=== PATIENT | male | born 1955 | race Caucasian/White ===

== ENCOUNTER 2018-09-02 14:11 | Observation (INO) | payer OTHER ==
[2018-09-02] MEDS ORDERED: NS 1,000 ML IV ONE (14:39)
[2018-09-02] MEDS ORDERED: IOHEXOL 350mgI/ML (OMNIPAQUE) 150 ML BTL IV ONE (14:48)
--- NOTE | 2018-09-02 14:51 | EDPHY ---
General - History Smoking Status: Never smoked Time Seen by Provider: 09/02/18 14:27 Narrative: CLINICAL IMPRESSION: Right cheek paresthesias ASSESSMENT/PLAN: 63-year-old male presents to the emergency department with 1 hr of right facial paresthesias. Patient reports having had similar symptoms late last year, sought medical attention 2 weeks later, had an abnormal MRI and was told he had had a TIA. Patient came to the ED today because he wanted a stroke workup. CT head and CTA head and neck read by Radiology with no acute abnormality identified. Patient was seen and examined by Dr. Aguero as well. Stroke Alert not called. EKG read and interpreted by Dr. Aguero. Labs reassuring, normal troponin, no electrolyte imbalance, renal insufficiency, leukocytosis. Will attempt to obtain prior MRI records from [facility]. Patient will be admitted for TIA workup. Aspirin initiated in the emergency department following normal CT scans. Recommendation for admission reviewed with the patient by Dr. Aguero and myself and he agrees to this. Patient is stable for admission. Discussed with hospitalist who accepts admission. DIFFERENTIAL DX: Differential includes but not limited to TIA, acute CVA, facial nerve palsy, trigeminal neuralgia, medication side effect, electrolyte imbalance, atypical migraine ED PROCEDURES: See lab and/or imaging results below ED COURSE: 2:45 p.m.: Case discussed with Dr. Aguero who also seen examine the patient. Stroke Alert not called. However we are obtaining CT and CTA. Probable admission for TIA workup. 2:50 p.m.: Patient seen by Dr. Aguero. Explained that we will likely admit for TIA workup. Patient in agreement. Patient did not take his aspirin yet today and if CT scans are normal we will give aspirin. 3:45 p.m.: CT scan read by Dr. Shane, no acute intracranial hemorrhage or bleed. CTA results pending. No significant lab abnormality identified. EKG reviewed by Dr. Aguero 4:00 p.m.: Dr. Shane read CT a negative, no carotid or vertebral narrowing or thrombus. 4:08 p.m.: Results of CT scans and lab work discussed with the patient. Explained that we recommend admission given his symptoms and possible TIA as well as reported abnormal MRI in the past. Patient reports he had MRI at [facility]. Will attempt to get that report. Hospitalist marylou. Discussed with Angelo who accepts admission CHIEF COMPLAINT: Right cheek numbness HPI: 63-year-old male with a history of hyperlipidemia and mental health illness presents to the emergency department with 1 hr of atraumatic, subjective right cheek numbness. Patient reports a sensation as though "Dental Novocain is wearing off" and reports he is having trouble feeling the right side of his upper teeth, right cheek extending to the right eyebrow. He reports an hour ago when looking in the mirror his right upper was drooping. That seems to have resolved. Patient reports he had similar symptoms to this in February 2018, did not seek treatment immediately, saw his primary care several weeks later, reportedly had an MRI and was told he had had a TIA and that he should have sought medical attention earlier. Patient is here stating "I want a stroke workup". He reports no new medications, facial trauma, recent dental injury although he did have left-sided dental work several days ago. No reported acute vision or hearing change. He is a nonsmoker, does not drink alcohol, denies headache, dizziness, vertigo, nausea and vomiting. No cardiac history. Patient reports he had a stress test as part of the workup for his symptoms in February, reportedly the test was discontinued early because of "some kind of abnormality in the heart" and he reports he then had a 3D heart scan which was normal. He did not go to the medical laboratory scientist. His mother of a stroke in her 80s. He has never been told he has peripheral artery disease or peripheral vascular disease. He does take medication for hyperlipidemia and is compliant with this. PAST MEDICAL HISTORY: Hyperlipidemia, mental health illness See nurse/triage notes for additional history if applicable Pertinent Past Surgical History: None reported Family History: Mother of stroke in her 80s Social History: Nonsmoker, does not drink alcohol, does not use illicit drugs REVIEW OF SYSTEMS: All other systems negative Constitutional: No fever, no chills, appetite change. Eyes: No discharge, vision change ENT: No sore throat, congestion, ear pain. Cardiovascular: No chest pain, no palpitations. Respiratory: No cough, no shortness of breath. Gastrointestinal: No abdominal pain, no vomiting, diarrhea. Genitourinary: No hematuria, dysuria, flank pain, pelvic pain Musculoskeletal: No back pain, joint swelling, joint pain, myalgias. Skin: No rashes, color change. Neurological: No headache, dizziness, weakness, subjective right cheek numbness PHYSICAL EXAM: General Appearance: Alert, oriented, appropriate, cooperative, NAD, well hydrated, non-toxic appearing, moderately hypertensive, remainder of vital signs stable, no hypoxia. HEENT: TMs are clear bilaterally no perforation or FB, no injection, no evidence of serous or mucopurulent otitis. Oropharynx clear is no erythema or exudates, no tonsillar hypertrophy or asymmetry. Dentition without abnormality. Eyes: PERRLA, no acute vision change, nystagmus, swelling, discharge, pain or photosensitivity. Conjunctiva pink, no pallor or injection Neck: Supple, nontender, no lymphadenopathy, no midline pain, FROM, no meningismus. Respiratory: There are no retractions, lungs are clear to auscultation. Cardiac: Regular rate and rhythm, no murmurs or gallops. Gastrointestinal: Abdomen is soft, nontender, bowel sounds normal, no masses/ hernia, no rigidity, guarding or focal peritoneal findings. Neurological: Alert and oriented x 3, CN 2-12 grossly intact, initial NIH score of 0 with no limb ataxia at 2:45 p.m.: normal gait no ataxia, DTR's intact, normal sensation and strength. Subjective diminished sensation to light touch from right eyebrow inferiorly to right cheek and right lateral lip as well as right upper teeth. I do not appreciate a facial droop Skin: Warm, dry, no rashes, no nodules on palpation. Musculoskeletal: Extremities are symmetrical, full range of motion, no tenderness, deformity, swelling, or erythema. Psychiatric: Patient is oriented X 3, there is no agitation. MEDICAL DECISION MAKING: Secondary supervising physician at time of evaluation was Dr. Aguero. Diagnosis: Subjective right cheek numbness . New, requires workup Summary: See Assessment and Plan for summary of ED visit Clinical lab tests: ordered / reviewed. Independent visualization of images, tracing, or specimens: Yes. Decision to obtain medical records or history from someone other than the patient: No Review / Summarize previous medical records: None available Discussed patient with another provider: Dr. Aguero who also saw and examined the patient Patient Progress: Stable for admission. (Jed Sánchez) - Diagnostics Imaging Results: Imaging Impressions Chest X-Ray 09/02/18 14:40 Impression: Mild hypoventilatory features, with some left basilar diskoid subsegmental atelectasis. Head CT 09/02/18 14:40 Impression: Negative. No acute intracranial hemorrhage or evidence of cortical ischemia. Findings discussed with Emergency Department physician plumber assistant, Jed Sánchez on 09/02/2018, 15:52. Head CTA 09/02/18 14:40 Impression: 1. Normal intracranial arterial circulation. No evidence of embolic disease or aneurysm. 2. Patent venous system. CT Angiogram Neck: Findings: The cervicothoracic aorta is normal caliber with trace calcified plaque giving rise to normal caliber widely patent great vessels. Trace noncalcified plaque of bilateral carotid bulbs results in less than 10% narrowing bilaterally. No ulcerative plaque or flow-limiting stenosis. Bilateral vertebral arteries are widely patent. The left vertebral artery is the dominant feeding vessel to the basilar artery and posterior circulation. Lung apices are clear, except for mild diffuse peribronchial thickening. No pulmonary nodule or mass. No enlarged lymph node or mass throughout the superior mediastinum or neck. There is mild to moderate multilevel degenerative disk. Impression: Widely patent bilateral carotid and vertebral arteries. Minimal bilateral carotid plaque results in less than 10% narrowing bilaterally. Findings discussed with Emergency Department physician plumber assistant, Jed Sánchez PA-C on September 02, 2018 at 1605 hours. Neck CTA 09/02/18 14:40 Impression: 1. Normal intracranial arterial circulation. No evidence of embolic disease or aneurysm. 2. Patent venous system. CT Angiogram Neck: Findings: The cervicothoracic aorta is normal caliber with trace calcified plaque giving rise to normal caliber widely patent great vessels. Trace noncalcified plaque of bilateral carotid bulbs results in less than 10% narrowing bilaterally. No ulcerative plaque or flow-limiting stenosis. Bilateral vertebral arteries are widely patent. The left vertebral artery is the dominant feeding vessel to the basilar artery and posterior circulation. Lung apices are clear, except for mild diffuse peribronchial thickening. No pulmonary nodule or mass. No enlarged lymph node or mass throughout the superior mediastinum or neck. There is mild to moderate multilevel degenerative disk. Impression: Widely patent bilateral carotid and vertebral arteries. Minimal bilateral carotid plaque results in less than 10% narrowing bilaterally. Findings discussed with Emergency Department physician plumber assistant, Jed Sánchez PA-C on September 02, 2018 at 1605 hours. Discussion: This patient was seen and examined by me. He presents with right facial droop and right facial numbness, symptoms have almost completely resolved. Concerning for TIA. On exam, chest is clear to auscultation, cardiovascular- regular rhythm and rate, neurologic exam normal. I agree with the assessment and plan. (Britta Aguero) - Objective Vital Signs: Initial Vital Signs Temperature (C) 36.3 C 09/02/18 14:16 Heart Rate 66 09/02/18 14:16 Respiratory Rate 16 09/02/18 14:16 Blood Pressure 150/72 H 09/02/18 14:16 O2 Sat (%) 93 09/02/18 14:16 O2 Delivery Mode Room Air Allergies/Adverse Reactions: No Known Allergies Allergy (Unverified 09/02/18 14:16) Laboratory Results: Laboratory Results 09/02/18 14:45 09/02/18 14:45 09/02/18 09/02/18 09/02/18 15:01 14:56 14:45 WBC RBC Hgb POC Hgb 13.6 gm/dL L gm/dL (13.7-17.5) Hct POC Hct 40 % % (40-51) MCV MCH MCHC RDW Plt Count MPV Neut % (Auto) Lymph % (Auto) [place] % (Auto) Eos % (Auto) Baso % (Auto) Nucleat RBC Rel Count Absolute Neuts (auto) Absolute Lymphs (auto) Absolute Monos (auto) Absolute Eos (auto) Absolute Basos (auto) Absolute Nucleated RBC Immature Gran % Immature Gran # PT INR APTT POC Sodium 144 mEq/L mEq/L (135-145) Sodium 141 mEq/L mEq/L (135-145) POC Potassium 3.9 mEq/L mEq/L (3.3-5.0) Potassium 4.0 mEq/L mEq/L (3.5-5.2) POC Chloride 106 mEq/L mEq/L (97-110) Chloride 109 mEq/L mEq/L (97-110) Carbon Dioxide 24 mEq/l mEq/l (22-31) POC Total CO2 23 mEq/L mEq/L (22-31) Anion Gap 8 mEq/L mEq/L (6-14) POC BUN 17 mg/dL mg/dL (7-23) BUN 18 mg/dL mg/dL (7-23) Creatinine 1.0 mg/dL mg/dL (0.7-1.3) POC Creatinine 1.0 mg/dL mg/dL (0.7-1.3) Estimated GFR > 60 Glucose 133 mg/dL H mg/dL (70-100) POC Glucose 144 mg/dL H mg/dL (70-100) Calcium 9.2 mg/dL mg/dL (8.5-10.4) POC Troponin I 0.01 ng/mL ng/mL (0.00-0.08) 09/02/18 09/02/18 14:45 14:45 WBC 5.09 10^3/uL 10^3/uL (3.80-9.50) RBC 4.26 10^6/uL L 10^6/uL (4.40-6.38) Hgb 13.2 g/dL L g/dL (13.7-17.5) POC Hgb Hct 39.1 % L % (40.0-51.0) POC Hct MCV 91.8 fL fL (81.5-99.8) MCH 31.0 pg pg (27.9-34.1) MCHC 33.8 g/dL g/dL (32.4-36.7) RDW 13.6 % % (11.5-15.2) Plt Count 187 10^3/uL 10^3/uL (150-400) MPV 9.6 fL fL (8.7-11.7) Neut % (Auto) 56.0 % % (39.3-74.2) Lymph % (Auto) 29.9 % % (15.0-45.0) [place] % (Auto) 10.0 % % (4.5-13.0) Eos % (Auto) 2.9 % % (0.6-7.6) Baso % (Auto) 0.8 % % (0.3-1.7) Nucleat RBC Rel Count 0.0 % % (0.0-0.2) Absolute Neuts (auto) 2.85 10^3/uL 10^3/uL (1.70-6.50) Absolute Lymphs (auto) 1.52 10^3/uL 10^3/uL (1.00-3.00) Absolute Monos (auto) 0.51 10^3/uL 10^3/uL (0.30-0.80) Absolute Eos (auto) 0.15 10^3/uL 10^3/uL (0.03-0.40) Absolute Basos (auto) 0.04 10^3/uL 10^3/uL (0.02-0.10) Absolute Nucleated RBC 0.00 10^3/uL 10^3/uL (0-0.01) Immature Gran % 0.4 % % (0.0-1.1) Immature Gran # 0.02 10^3/uL 10^3/uL (0.00-0.10) PT 13.3 SEC SEC (12.0-15.0) INR 0.99 (0.83-1.16) APTT 26.4 SEC SEC (23.0-38.0) POC Sodium Sodium POC Potassium Potassium POC Chloride Chloride Carbon Dioxide POC Total CO2 Anion Gap POC BUN BUN Creatinine POC Creatinine Estimated GFR Glucose POC Glucose Calcium POC Troponin I Medications Given: Discontinued Medications Aspirin (Aspirin) 325 mg PO EDNOW ONE Stop: 09/02/18 16:06 Last Admin: 09/02/18 16:13 Dose: 325 mg Sodium Chloride (Ns) 1,000 mls @ 500 mls/hr IV EDNOW ONE PRN Reason: Protocol Stop: 09/02/18 16:38 Last Admin: 09/02/18 15:15 Dose: 1,000 mls Point of Care Test Results: Chemistry 09/02/18 09/02/18 15:01 14:56 POC Sodium 144 mEq/L mEq/L (135-145) POC Potassium 3.9 mEq/L mEq/L (3.3-5.0) POC Chloride 106 mEq/L mEq/L (97-110) POC Total CO2 23 mEq/L mEq/L (22-31) POC BUN 17 mg/dL mg/dL (7-23) POC Creatinine 1.0 mg/dL mg/dL (0.7-1.3) POC Glucose 144 mg/dL H mg/dL (70-100) POC Troponin I 0.01 ng/mL ng/mL (0.00-0.08) ISTAT H&H 09/02/18 14:56 POC Hgb 13.6 gm/dL L gm/dL (13.7-17.5) POC Hct 40 % % (40-51) Departure - Departure Disposition: [facility] Inpatient Acute Clinical Impression: Facial paresthesia Condition: Good
[2018-09-02 15:02] LABS: PLATELET COUNT 187 10^3/uL (150-400)
[2018-09-02 15:11] LABS: INR 0.99 (0.83-1.16); PROTIME(PATIENT) 13.3 SEC (12.0-15.0)
[2018-09-02] MEDS ORDERED: ASPIRIN 325 MG TAB PO ONE (16:05)
[2018-09-02] MEDS ORDERED: ACETAMINOPHEN 325 MG TAB PO PRN (17:54)
--- NOTE | 2018-09-02 18:20 | PDGENHP ---
History and Physical - Chief Complaint right face numbness - History of Present Illness 63yo M with hyperlipidemia, depression/anxiety presents with acute onset right face numbness. Started in upper lip and spread down to chin and up to eyelid but did not involve forehead. He also noticed his upper right lip "drooping" when he looked into the mirror. These symptoms lasted about 3 hours and spontaneously resolved after coming to the ED. He denies any vision changes, weakness, difficulty speaking. He reports that similar symptoms occurred approximately 6 months ago. He did not get these evaluated immediately but did see his PCP about 2 weeks after and had a brain MRI which he reports showed microvascular disease. He also had a cardiac work up including TTE, stress test , and CT angiograph of his coronaries which he reports were normal. In the ED, he had a normal neurologic exam. CT head and CTA head/neck without acute findings. He is being admitted for further evaluation. History Information - Allergies/Home Medication List Allergies/Adverse Reactions: No Known Allergies Allergy (Unverified 09/02/18 14:16) Home Medications: Fenofibric Acid (Choline) [TRILIPIX] 135 mg PO DAILY 09/02/18 [Last Taken Unknown] Herbals/Supplements -Info Only 1 ea PO DAILY 09/02/18 [Last Taken Unknown] OLANZapine [ZyPREXA 2.5 mg (*)] 7.5 mg PO HS 09/02/18 [Last Taken 09/01/18] Rosuvastatin Calcium [Crestor 20mg (*)] 20 mg PO DAILY 09/02/18 [Last Taken 11/14] buPROPion XL [Wellbutrin Xl] 450 mg PO DAILY 09/02/18 [Last Taken 09/02/18] I have personally reviewed and updated: family history, medical history, social history, surgical history - Past Medical History Additional medical history: HLD, depression/anxiety, ?TIA - Surgical History Reports: no pertinent surgical hx - Family History Additional family history: father - CVA in later years, mother - CAD/[place] in 60s, grandmother - stroke - Social History Smoking Status: Never smoked Alcohol Use: None Drug Use: None Additional social history: Lives with , independent in ADLs Review of Systems Review of Systems: ROS: 10pt was reviewed & negative except for what was stated in HPI & below Physical Exam Physical Exam: Temp Pulse Resp BP Pulse Ox 36.5 C 60 16 115/82 H 94 09/02/18 17:45 09/02/18 17:45 09/02/18 17:45 09/02/18 17:45 09/02/18 17:45 Constitutional: no apparent distress, appears nourished, not in pain Eyes: PERRL, anicteric sclera, EOMI Ears, Nose, Mouth, Throat: moist mucous membranes, hearing normal, ears appear normal, no oral mucosal ulcers Cardiovascular: regular rate and rhythym, no murmur, rub, or gallop, No edema Respiratory: no respiratory distress, no rales or rhonchi, clear to auscultation Gastrointestinal: normoactive bowel sounds, soft, non-tender abdomen, no palpable masses Genitourinary: no bladder fullness, no bladder tenderness Skin: warm, normal color, no rashes or abrasions, no fluctuance, no induration, No mottled Musculoskeletal: full muscle strength, no muscle tenderness, normal joint ROM, no joint effusions Neurologic: AAOx3, sensation intact bilaterally, CN II-XII Intact, No weakness, No numbness, No pronator drift, No asterixes, No facial droop Psychiatric: interacting appropriately, not anxious, not encephalopathic, thought process linear Lab Data & Imaging Review 09/02/18 14:45 09/02/18 14:45 WBC 5.09 10^3/uL (3.80-9.50) 09/02/18 14:45 RBC 4.26 10^6/uL (4.40-6.38) L 09/02/18 14:45 Hgb 13.2 g/dL (13.7-17.5) L 09/02/18 14:45 POC Hgb 13.6 gm/dL (13.7-17.5) L 09/02/18 14:56 Hct 39.1 % (40.0-51.0) L 09/02/18 14:45 POC Hct 40 % (40-51) 09/02/18 14:56 MCV 91.8 fL (81.5-99.8) 09/02/18 14:45 MCH 31.0 pg (27.9-34.1) 09/02/18 14:45 MCHC 33.8 g/dL (32.4-36.7) 09/02/18 14:45 RDW 13.6 % (11.5-15.2) 09/02/18 14:45 Plt Count 187 10^3/uL (150-400) 09/02/18 14:45 MPV 9.6 fL (8.7-11.7) 09/02/18 14:45 Neut % (Auto) 56.0 % (39.3-74.2) 09/02/18 14:45 Lymph % (Auto) 29.9 % (15.0-45.0) 09/02/18 14:45 [place] % (Auto) 10.0 % (4.5-13.0) 09/02/18 14:45 Eos % (Auto) 2.9 % (0.6-7.6) 09/02/18 14:45 Baso % (Auto) 0.8 % (0.3-1.7) 09/02/18 14:45 Nucleat RBC Rel Count 0.0 % (0.0-0.2) 09/02/18 14:45 Absolute Neuts (auto) 2.85 10^3/uL (1.70-6.50) 09/02/18 14:45 Absolute Lymphs (auto) 1.52 10^3/uL (1.00-3.00) 09/02/18 14:45 Absolute Monos (auto) 0.51 10^3/uL (0.30-0.80) 09/02/18 14:45 Absolute Eos (auto) 0.15 10^3/uL (0.03-0.40) 09/02/18 14:45 Absolute Basos (auto) 0.04 10^3/uL (0.02-0.10) 09/02/18 14:45 Absolute Nucleated RBC 0.00 10^3/uL (0-0.01) 09/02/18 14:45 Immature Gran % 0.4 % (0.0-1.1) 09/02/18 14:45 Immature Gran # 0.02 10^3/uL (0.00-0.10) 09/02/18 14:45 PT 13.3 SEC (12.0-15.0) 09/02/18 14:45 INR 0.99 (0.83-1.16) 09/02/18 14:45 APTT 26.4 SEC (23.0-38.0) 09/02/18 14:45 POC Sodium 144 mEq/L (135-145) 09/02/18 14:56 Sodium 141 mEq/L (135-145) 09/02/18 14:45 POC Potassium 3.9 mEq/L (3.3-5.0) 09/02/18 14:56 Potassium 4.0 mEq/L (3.5-5.2) 09/02/18 14:45 POC Chloride 106 mEq/L (97-110) 09/02/18 14:56 Chloride 109 mEq/L (97-110) 09/02/18 14:45 Carbon Dioxide 24 mEq/l (22-31) 09/02/18 14:45 POC Total CO2 23 mEq/L (22-31) 09/02/18 14:56 Anion Gap 8 mEq/L (6-14) 09/02/18 14:45 POC BUN 17 mg/dL (7-23) 09/02/18 14:56 BUN 18 mg/dL (7-23) 09/02/18 14:45 Creatinine 1.0 mg/dL (0.7-1.3) 09/02/18 14:45 POC Creatinine 1.0 mg/dL (0.7-1.3) 09/02/18 14:56 Estimated GFR > 60 09/02/18 14:45 Glucose 133 mg/dL (70-100) H 09/02/18 14:45 POC Glucose 144 mg/dL (70-100) H 09/02/18 14:56 Calcium 9.2 mg/dL (8.5-10.4) 09/02/18 14:45 POC Troponin I 0.01 ng/mL (0.00-0.08) 09/02/18 15:01 Assessment & Plan Assessment: 63yo M with hyperlipidemia, depression/anxiety presents with acute onset right face numbness. Plan: 1. Right facial paresthesias: Symptoms now resolved. Concerning for TIA. CT head and CTA head/neck unremarkable. - Brain MRI - Will hold on repeating TTE as recently had done. Requesting records from recent cardiac work up (TTE, stress test) - Neurology consulted - PT/OT/TONGUE BINDER - Currently on aspirin 81mg daily, recommend increasing dose - Continue statin - Candidate for outpatient cardiac event monitor to eval for occult afib 2. HLD: On high intensity statin. 3. Depression/anxiety: Continue home meds. VTE ppx: ambulation Diet: regular Code: full Dispo: Admit under observation
[2018-09-02] MEDS ORDERED: ONDANSETRON DISINTEGRATING 4 MG TAB PO PRN (18:25)
--- NOTE | 2018-09-02 21:02 | CPEKG ---
Test Reason : OPEN Blood Pressure : / mmHG Vent. Rate : 065 BPM Atrial Rate : 066 BPM P-R Int : 223 ms QRS Dur : 101 ms QT Int : 382 ms P-R-T Axes : 045 008 039 degrees QTc Int : 398 ms Sinus rhythm Prolonged NC interval Probable left atrial enlargement Confirmed by Britta Infante ([id number]) on 09/02/2018 9:01:32 PM Referred By: BRITTA INFANTE Confirmed By:Britta Infante
[2018-09-02] MEDS ORDERED: GADOBUTROL 10 ML VIAL IVP ONE (21:08)
[2018-09-02] MEDS: OLANZapine 2.5 MG TAB PO SCH (21:57)
[2018-09-02] MEDS: ROSUVASTATIN CALCIUM 20 MG TAB PO SCH (22:21)
[2018-09-03] MEDS: buPROPion XL 150 MG TAB PO SCH (07:48)
[2018-09-03] MEDS: FENOFIBRATE 145 MG TAB PO SCH (07:48)
--- NOTE | 2018-09-03 09:51 | NEUROPROG ---
Assessment: [id number] - Neurology Consult: - CC: Dr. Brooks consulted neurology for numbness. Results placed in EMR for his review. - HPI: Pt noted 3 hours of right facial numbness and right lip drooping on 09/02/18 with resolution of symptoms afterwards. Similar symptoms 6 months ago with negative w/u then. Prior to the symptoms on 09/02/18 he was on a statin and aspirin 81 mg qd. Pt admitted for TIA evaluation. Head CT and CTA head/neck unremarkable. I initially saw pt on 09/03/18. Neuro exam normal. Brain MRI wo, TTE, telemetry, and labs (H1AC/LDL) ordered to further eval for stroke. Suspect TIA/stroke so will change home aspirin 81 mg qd to plavix 75 mg qd ( aspirin failure as did not prevent TIA). PT/OT/Speech to determine any rehab needs. - PMHx: HLD, depression/anxiety, TIA? - SHx: no tobacco FHx: CVA, CAD/[place], stroke - ROS: Pt denied acute fever, total vision loss, active severe chest pain, respiratory failure, total body severe rash, total bowel/bladder incontinence, psychosis, active seizures, or active bleeding - O: VS reviewed General: Alert Eyes: Fundoscopic exam not able to visualize optic disks CV: Heart RRR, no murmur, no carotid bruit Lungs: Clear to auscultation bilaterally, no rhonchi or rales Neuro: - Mental: . Oriented x person/place/date . concentration appears normal . speech fluency/comprehension normal . memory appears normal . fund of knowledge appear intact - Cranial Nerves: . II: PERRL, VFFTC . III/IV/: EOMI, no nystagmus, normal smooth pursuits, no Ptosis . V: facial sensation intact to LT . VII: face symmetric to eye closure and smile . VIII: hearing intact to conversation . IX/X: uvula raises symmetrically . XI: SCM 5/5 B/L strength . XII: tongue protrudes midline w/nl strength - Motor: . Tone: normal tone in all 4 extremity . 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 TIA causing 1 hour of right cheek numbness on 09/02/18 - Plan: - Change aspirin 81 mg qd to plavix 75 mg qd for stroke prevention (aspirin failure, TIA on aspirin on 09/02/18) - Brain MRI wo - Recommend TTE now to evaluate current symptoms even if prior TTE was unremarkable - 24 hour telemetry for any pAfib - Blood pressure < 140/90 - H1AC < 7.0 - LDL < 70 (adjust statin if above this level) - PT/OT/Speech to determine any rehab needs - F/U in neurology clinic 1-6 weeks after discharge Objective: Vital Signs Temp Pulse Resp BP Pulse Ox 36.4 C 61 19 134/81 H 92 09/03/18 08:00 09/03/18 08:00 09/03/18 08:00 09/03/18 08:00 09/03/18 08:00 09/02/18 09/03/18 09/04/18 05:59 05:59 05:59 Intake Total 1000 Output Total 3300 325 Balance -2300 -325 PT 13.3 SEC (12.0-15.0) 09/02/18 14:45 INR 0.99 (0.83-1.16) 09/02/18 14:45 Allergies/Adverse Reactions: No Known Allergies Allergy (Unverified 09/02/18 14:16)
--- NOTE | 2018-09-03 11:51 | ECHO ---
[email or web address] [address] Main: [phone] Fax: Transthoracic Echocardiogram Name: VANDA PRIETO MR#: [id number] Study Date: 09/03/2018 Study Time: 09:59 AM Date of : 1955 Age: 63 year(s) Height: 188 cm (74 in.) Weight: 116.12 kg (256 lb.) BSA: 2.41 m2 Gender: Male Examination: Echo with Agitated Saline Indication: TIA Image Quality: Adequate Contrast: Requested by: Mookie Lozano BP: 134 mmHg/81 mmHg Heart Rate: Rhythm: Indication: TIA Procedure Staff Audit Analyst: Lana Ko RDCS Reading Physician: Erwin Romo MD Requesting Provider: Conclusions: No pericardial effusion. Concentric left ventricular hypertrophy. Ejection fraction 60%. Agitated saline injection revealed no evidence of [id number] shunting. Mild mitral regurgitation. Mild tricuspid regurgitation with right ventricular systolic pressure of 34 mm of mercury. Measurements: Chambers Valvular Assessment AV/MV Valvular Assessment TV/PV Normal Normal Normal Name Value Range Name Value Range Name Value Range Ao Juliana (2D): 3.2 cm (1.4 cm-2.6 AV Vmax: 1.79 m/s (1 m/s-1.7 TR Vmax: 2.67 mm/s ( - ) cm) m/s) TR PGmax: 29 mmHg ( - ) IVSd (2D): 1.2 cm (0.6 cm-1.1 AV maxP mmHg ( - ) syst. PAP: 34 mmHg ( - ) cm) AV meanP mmHg ( - ) PV Vmax: 1.25 m/s (0.6 m/s-0.9 LVDd (2D): 4.5 cm (4.2 cm-5.9 AMANDA (VTI): 2.8 cm ( - ) m/s) cm) MV E Vmax: 1.02 m/s ( - ) PV PGmax: 6 mmHg ( - ) LVDs (2D): 2.9 cm (2.1 cm-4 MV A Vmax: 0.91 m/s ( - ) cm) MV E/A: 1.12 ( - ) LVPWd (2D): 1.2 cm (0.6 cm-1 cm) MV PHT: 0.076 s ( - ) LVOTd 1.9 cm 1.9 cm mm MVA (PHT): 2.9 s ( - ) Visual EF: 60 % RVDd(2D): 3.1 cm (1.9 cm-3.8 cmmm) Continued Measurements: Chambers Valvular Assessment AV/MV Valvular Assessment TV/PV Name Value Name Value Name Value LADs: 3.7 cm MV DecTime: 250 m/s CVP (est.): 5 mmHg LADs Lon.8 cm MV E' Septal: 0.10 m/s LA Area: 29.5 cm2 MV E/E' Septal: 10.70 Patient: VANDA PRIETO Study Date: 09/03/2018 Page 1 of 2 09:59 AM LA Volume: 89 ml MV E/E' Lateral: 7.90 LA Volume Index: 36.9 ml/m2 RA Area: 20.9 cm2 Additional Vessels Name Value Ao Ascendin.4 cm Inferior Vena Cava: 1.5 cm Findings: Left Ventricle: Normal size left ventricle. Mild concentric LV hypertrophy. Normal global systolic LV function. The ejection fraction is visually estimated to be 60 %. Normal diastolic LV function. Right Ventricle: Normal size right ventricle. Normal RV function. Left Atrium: The left atrium is mildly dilated. An agitated saline study was performed and was negative for intracardiac shunting. Right Atrium: The right atrium is mildly dilated. Mitral Valve: The mitral valve is normal in appearance and function. Mild mitral valve regurgitation is present. No mitral stenosis is present. Aortic Valve: The aortic valve is tri-leaflet. There is no significant aortic valve regurgitation. No aortic valve stenosis is present. Tricuspid Valve: The tricuspid valve is normal in appearance and function. Mild tricuspid regurgitation is present. The pulmonary artery pressure is normal. Right ventricular systolic pressure measures 34mmHg. Pulmonic Valve: The pulmonic valve is normal in appearance and function. Mild pulmonic valve regurgitation is noted. Aorta: The aorta is normal. Normal size aortic root measuring 3.2 cm. Normal size ascending aorta measuring 3.4 cm. IVC: The IVC is normal sized. Pericardium: No pericardial effusion. (No Signature Object) Patient: VANDA PRIETO Study Date: 09/03/2018 Page 2 of 2 09:59 AM [id number]
--- NOTE | 2018-09-03 14:38 | ASMTCMCOM ---
CM Note CM Note Notes: Pt in for facial paresthesis, symptoms now resolved. PT/OT/GENERAL ACTIVITIES THERAPIST clear pt for home. Neurology consulting, pt to follow up in 1-6 weeks. Anticipate pt will d/c when medically stable with spouse support. No CM d/c needs identified. CM available for changes/needs. Date Signed: 09/03/2018 02:37 PM Electronically Signed By:CECILLE Daily
--- NOTE | 2018-09-03 17:18 | HOSPPROG ---
Hospitalist Progress Note Assessment/Plan: 63yo M with hyperlipidemia, depression/anxiety presents with acute onset right face numbness. Neurology evaluated and likely TIA. Plan: Right facial paresthesias: Symptoms now resolved. Concerning for TIA. CT head and CTA head/neck unremarkable. Neurology consulted on patient who thinks patient had TIA with resolution of symptoms. They recommended echo with bubble and monitoring patient on telemetry for 24 hr to ensure no AFib. -MRI unremarkable -echo unchanged -stop aspirin start Plavix 75 q.day for aspirin failure -monitor on telemetry 24 hr for any AFib -blood pressure less than 140/90 -hemoglobin A1c less than 7 -LDL less than 70 (65) on Crestor -PTOT, speech eval -follow up with Neurology in 1-6 weeks after discharge HLD: On high intensity statin. LDL at goal. Continue Depression/anxiety: Continue home meds. Subjective: No complaints symptoms have resolved Objective: Vital Signs Temp Pulse Resp BP Pulse Ox 36.9 C 70 16 131/78 H 92 09/03/18 16:00 09/03/18 16:00 09/03/18 16:00 09/03/18 16:00 09/03/18 16:00 09/02/18 09/03/18 09/04/18 05:59 05:59 05:59 Intake Total 1000 500 Output Total 3300 1275 Balance -2300 -775 PT 13.3 SEC (12.0-15.0) 09/02/18 14:45 INR 0.99 (0.83-1.16) 09/02/18 14:45 - Physical Exam Constitutional: no apparent distress, appears nourished, not in pain Eyes: PERRL, anicteric sclera, EOMI Ears, Nose, Mouth, Throat: moist mucous membranes, hearing normal, ears appear normal, no oral mucosal ulcers Cardiovascular: regular rate and rhythym, no murmur, rub, or gallop Respiratory: no respiratory distress, no rales or rhonchi, clear to auscultation Gastrointestinal: normoactive bowel sounds, soft, non-tender abdomen, no palpable masses Genitourinary: no bladder fullness, no bladder tenderness, no renal bruits Skin: no rashes or abrasions, no fluctuance, no induration Musculoskeletal: full muscle strength, no muscle tenderness, normal joint ROM Neurologic: AAOx3, sensation intact bilaterally Psychiatric: interacting appropriately, not anxious, not encephalopathic, thought process linear Lymph, Heme, Immunologic: no cervical LAD, no supraclavicular LAD ICD10 Worksheet Patient Problems: Problems Problem Status Onset Facial paresthesia Acute
[2018-09-03] MEDS: ROSUVASTATIN CALCIUM 20 MG TAB PO SCH (20:50)
[2018-09-03] MEDS: OLANZapine 2.5 MG TAB PO SCH (20:50)
[2018-09-04 07:46] VITALS: BP 110/58
[2018-09-04] MEDS: FENOFIBRATE 145 MG TAB PO SCH (09:19)
[2018-09-04] MEDS: buPROPion XL 150 MG TAB PO SCH (09:19)
--- NOTE | 2018-09-04 10:10 | NEUROPROG ---
Assessment: [id number] - Neurology Consult: - CC: F/U for TIA - Narrative Summary: Pt noted 3 hours of right facial numbness and right lip drooping on 09/02/18 with resolution of symptoms afterwards. Similar symptoms 6 months ago with negative w/u then. Prior to the symptoms on 09/02/18 he was on a statin and aspirin 81 mg qd. Pt admitted for TIA evaluation. Head CT and CTA head/neck unremarkable. I initially saw pt on 09/03/18. Neuro exam normal. Suspect TIA/ stroke so will change home aspirin 81 mg qd to plavix 75 mg qd (aspirin failure as did not prevent TIA). - HPI: F/U 09/04/18. Brain MRI wo unremarkable. TTE/telemetry show no cause for TIA. LDL 65 and H1AC 5.5. Pt w/o new complaints. Pt told to f/u in neurology clinic in 1-6 weeks. - PMHx: HLD, depression/anxiety, TIA? - SHx: no tobacco FHx: CVA, CAD/DE, stroke - ROS: Pt denied acute fever, total vision loss, active severe chest pain, respiratory failure, total body severe rash, total bowel/bladder incontinence, psychosis, active seizures, or active bleeding - Labs: 09/02/18- CBC Hct 39.1L, Coags wnl, Chem Gluc 133H - Rads: 09/02/18- Head CT wo: no acute intracranial changes 09/02/18- Head/neck CTA: no significant stenosis or occlusion 09/02/18- Brain MRI wwo: no acute intracranial findings 09/02/18- TTE: no cause for stroke found 09/02/18- 24 hour telemetry: no afib noted - Assessment: 1. TIA causing 1 hour of right cheek numbness on 09/02/18 - Plan: - Change aspirin 81 mg qd to plavix 75 mg qd for stroke prevention (aspirin failure, TIA on aspirin on 09/02/18) - Continue home dose of statin - Work with PCM to ensure Blood pressure < 140/90, H1AC < 7.0, LDL < 70 - PT/OT/Speech to determine any rehab needs - F/U in neurology clinic 1-6 weeks after discharge - Neurology will sign off - 35 min spent with patient, majority of time spent counseling on TIA and prognosis and treatment plan Objective: Vital Signs Temp Pulse Resp BP Pulse Ox 36.4 C 55 L 15 110/58 L 91 L 09/04/18 07:41 09/04/18 07:41 09/04/18 07:41 09/04/18 07:41 09/04/18 07:41 09/03/18 09/04/18 09/05/18 05:59 05:59 05:59 Intake Total 1000 2250 Output Total 3300 4025 Balance -2300 -1775 PT 13.3 SEC (12.0-15.0) 09/02/18 14:45 INR 0.99 (0.83-1.16) 09/02/18 14:45 Allergies/Adverse Reactions: No Known Allergies Allergy (Unverified 09/02/18 14:16)
== END 2018-09-04 10:52 | disposition home or self-care (01) ==
LOC: F3E 17:37 → F3N 20:01
PROVIDERS: ADMIT Internal Medicine; ATTEND Internal Medicine
DX: G45.9 Transient cerebral ischemic attack, unspecified (principal); R20.2 Paresthesia of skin; E78.5 Hyperlipidemia, unspecified; E86.9 Volume depletion, unspecified; F41.9 Anxiety disorder, unspecified; F32.9 Major depressive disorder, single episode, unspecified
CPT/HCPCS: 82435-PO; 82565-PO; 82947-PO; 84132-PO; 84295-PO; 84484-ER; 84520-PO; 85014-ER; 92523-GN; 97161-GP; 97165-GO; A9585; G0378; Q9967